=== PATIENT | female | born 1995 | race Two or more races ===

== ENCOUNTER 2017-11-07 11:17 | Emergency (ER) | payer MEDICAID ==
[~2017-11-07] VITALS: Ht 160 cm; Wt 70.3 kg
[~2017-11-07 11:17] MED LIST: PREN-129 PO
[2017-11-07 11:25] VITALS: BP 145/97
[2017-11-07 11:47] LABS: Urine Bacteria NONE SEEN /hpf (None Seen); Urine Blood Negative /uL (Negative); Urine Specific Gravity 1.013 (1.001-1.035); Urine WBC 1 /hpf (0 - 5)
[2017-11-07] MEDS ORDERED: hydrOXYzine HCL 25 MG/ML VL IM ONE (12:00)
[2017-11-07 12:33] LABS: Alcohol, Urine < 3.0 mg/dL (0-5); Amphetamine Screen, Urine NEGATIVE (NEGATIVE); Barbiturate Scree,Urine NEGATIVE (NEGATIVE); Benzodiazephine Screen, Urine NEGATIVE (NEGATIVE); Cannabinoid Screen, Urine NEGATIVE (NEGATIVE); Cocaine Screen, Urine NEGATIVE (NEGATIVE); Opiate Scree,Urine NEGATIVE (NEGATIVE); Phencyclidine Screen, Urine NEGATIVE (NEGATIVE)
[2017-11-07] MEDS ORDERED: ONDANSETRON ODT 4 MG TAB PO ONE (13:00)
== END 2017-11-07 13:05 | disposition home or self-care (01) ==
LOC: ER 11:17
DX: F41.1 Generalized anxiety disorder (principal)
CPT/HCPCS: 70450; 80307; 81001; 96372; 99285; J3410; Q0162

== ENCOUNTER 2018-07-07 14:23 | Emergency (ER) | payer MEDICAID ==
[~2018-07-07] VITALS: Ht 160 cm; Wt 63.5 kg
[2018-07-07 15:37] VITALS: BP 124/75
[2018-07-07] MEDS ORDERED: KETOROLAC TROMETH 60MG/2ML VIAL IM ONE (16:15)
[2018-07-07] MEDS ORDERED: ONDANSETRON ODT 4 MG TAB PO ONE (16:15)
== END 2018-07-07 17:07 | disposition home or self-care (01) ==
LOC: ER 14:23
DX: G43.909 Migraine, unspecified, not intractable, without status migrainosus (principal)
CPT/HCPCS: 96372; 99283; J1885; Q0162

== ENCOUNTER 2020-05-07 13:06 | Emergency (ER) | payer MEDICAID ==
[~2020-05-07] VITALS: Ht 160 cm; Wt 63.5 kg
[2020-05-07 15:06] VITALS: BP 122/77
== END 2020-05-07 15:37 | disposition home or self-care (01) ==
LOC: ER 13:06
DX: J02.9 Acute pharyngitis, unspecified (principal)